=== PATIENT | female | born 1990 ===

== ENCOUNTER → 2021-09-17 | Day surgery (SDC) | payer OTHER ==
[~2021-09-17] VITALS: Ht 160 cm; Wt 72.6 kg
[2021-09-17 08:12] LABS: HCG (URINE) SCREEN NEGATIVE (NEGATIVE)
[2021-09-17 08:17] LABS: BASOPHIL 0.7 % (0-2); EOSINOPHIL 2.1 % (0-5); HCT 41.1 % (37.0-47.0); HGB 13.8 g/dl (12.5-16.0); LYMPHOCYTE 23.5 % (15-48); MCH 30.3 pg (25.0-31.0); MCHC 33.6 g/dL (32.0-36.0); MCV 90.1 fL (78.0-100.0); MONOCYTE 8.8 % (0-12); MPV 11.3 fL (6.0-9.5); NEUTROPHIL 64.5 % (41-80); NRBC 0; PLT 290 K/uL (150-400); RBC 4.56 M/uL (4.20-5.40); RDW 13.4 % (11.5-14.0); WBC 8.1 K/uL (4.0-10.5)
== END | disposition home or self-care (01) ==
LOC: FAS 07:30
PROVIDERS: Oral & Maxillofacial Surgery
DX: K04.7 Periapical abscess without sinus (principal); K02.9 Dental caries, unspecified; F41.9 Anxiety disorder, unspecified; F17.210 Nicotine dependence, cigarettes, uncomplicated
CPT/HCPCS: D7140 ×3; D7210 ×6; D7310; 36415; 84703; 85025; J1100; J1885; J2250; J2405; J2704; J7120

== ENCOUNTER 2021-09-23 18:50 | Day surgery (SDCO) | payer OTHER ==
[~2021-09-23] VITALS: Ht 162.6 cm; Wt 78.7 kg
[2021-09-23 20:14] LABS: BILIRUBIN NEGATIVE (NEGATIVE); BLOOD NEGATIVE Ery/uL (NEGATIVE); CLARITY CLEAR (CLEAR); GLUCOSE (U) NORMAL (NORMAL); LEUKOCYTES NEGATIVE Leu/uL (NEGATIVE); NITRITE NEGATIVE (NEGATIVE); PROTEIN NEGATIVE (NEGATIVE); SPECIFIC GRAVITY <=1.005 (1.001-1.030); UROBILINOGEN 0.2 mg/dL (0.2-1.0); pH 7.5 (5.0-9.0)
[2021-09-23 20:15] LABS: COLOR STRAW (YELLOW)
[2021-09-23 20:38] LABS: BASOPHIL 0.4 % (0-2); EOSINOPHIL 0.8 % (0-5); HCT 35.5 % (37.0-47.0); HGB 11.8 g/dl (12.5-16.0); LYMPHOCYTE 28.3 % (15-48); MCH 30.3 pg (25.0-31.0); MCHC 33.2 g/dL (32.0-36.0); MCV 91.3 fL (78.0-100.0); MONOCYTE 5.9 % (0-12); MPV 10.7 fL (6.0-9.5); NEUTROPHIL 64.1 % (41-80); NRBC 0; PLT 305 K/uL (150-400); RBC 3.89 M/uL (4.20-5.40); RDW 13.6 % (11.5-14.0); WBC 13.3 K/uL (4.0-10.5)
[2021-09-23 20:56] LABS: ALBUMIN 3.5 g/dL (3.4-5.0); BILIRUBIN - TOTAL 0.9 mg/dL (0.2-1.0); BUN/CREAT RATIO (CALC) 9.1 RATIO; CREATININE 0.66 mg/dL (0.51-0.95); GLOBULIN (CALCULATION) 3.1 g/dL; TOTAL PROTEIN 6.6 g/dL (6.4-8.2)
[2021-09-23 23:55] LABS: C-REACTIVE PROTEIN < 0.20 mg/dL (<=0.90)
[2021-09-24 06:35] LABS: BASOPHIL 0.5 % (0-2); EOSINOPHIL 2.1 % (0-5); HCT 33.2 % (37.0-47.0); HGB 11.2 g/dl (12.5-16.0); LYMPHOCYTE 39.5 % (15-48); MCH 30.4 pg (25.0-31.0); MCHC 33.7 g/dL (32.0-36.0); MCV 90.2 fL (78.0-100.0); MONOCYTE 7.3 % (0-12); MPV 10.9 fL (6.0-9.5); NEUTROPHIL 50.4 % (41-80); NRBC 0; PLT 291 K/uL (150-400); RBC 3.68 M/uL (4.20-5.40); RDW 13.6 % (11.5-14.0)
[2021-09-24 07:01] LABS: BUN/CREAT RATIO (CALC) 11.3 RATIO; CREATININE 0.62 mg/dL (0.51-0.95); POTASSIUM 3.4 mmol/L (3.5-5.1)
--- NOTE | 2021-09-24 17:09 | NUR ---
PT LEFT AMA PAPER SIGNED BY PT. INFORMED FABY TUBBS. PT LEFT WITH FAMILY. IV REMOVED. PT TOOK OFF TELY.
== END 2021-09-24 17:00 | disposition left against medical advice (07) ==
LOC: FER 18:50 → FMS 23:30
PROVIDERS: Internal Medicine; Physician Assistant; ADMIT Internal Medicine
DX: I50.9 Heart failure, unspecified (principal); K08.409 Partial loss of teeth, unspecified cause, unspecified class; F17.210 Nicotine dependence, cigarettes, uncomplicated; Z86.16 Personal history of COVID-19; Z82.49 Family history of ischemic heart disease and other diseases of the circulatory system
CPT/HCPCS: 36415; 71045; 71046; 71275; 80048; 80053; 81003; 83880; 84439; 84443; 84484; 85025; 85379; 86140; 93005; 94762; G0378; J1940; J3475; J3480; J7050; Q9967